=== PATIENT | male | born 1955 | race Caucasian/White ===

== ENCOUNTER → 2016-07-04 | Day surgery (SDC) | payer OTHER ==
[2016-05-02 15:19] VITALS: BMI 37.0
[~2016-07-04] MED LIST: LIDOCAINE HCL 2% 2 ML VIAL (20MG/ML) ONE; LISI-461 PO; MIDAZOLAM HCL 1 MG/ML 2ML VIAL ONE; ONDANSETRON INJ 2 MG/ML 2 ML VIAL ONE; PROPOFOL IV EMULSION 10 MG/ML 20 ML VIAL IV ONE; SODIUM CHLORIDE 0.9% 500ML 500 ML IV ONE
[2016-07-04 08:18] VITALS: TEMP 36.6
--- NOTE | 2016-07-04 08:35 | Endo History and Physical ---
History & Physical Date of Service: Jul 04, 2016. Chief Complaint: history of polyps Referring Physician: Dr. Arnaud Fletcher History of Present Illness 61 yo CM who presents for colonoscopy secondary to history of colon polyps. Past Medical History Arthritis, Hypertension Past Surgical History Hx Cardiac Surgery: No Hx Internal Defibrillator: No Hx Pacemaker: No Hx Abdominal Surgery: No Hx of Implantable Prosthesis: No Hx Post-Op Nausea and Vomiting: No Hx Cancer Surgery: No Hx Thoracic Surgery: No Hx Orthopedic: Yes (LT/ RT ROJELIO, LT KNEE SCOPE) Hx Urinary Tract Surgery: No Family History None Social History Smoking Status: Never Smoker Hx Substance Use: No Hx Alcohol Use: Yes (3-4 BEERS 3-4X/WEEK) Allergies Coded Allergies: No Known Allergies (Verified , 05/02/16) Current Medications Reported Home Medications Medications Dose Route/Sig Max Daily Dose Days Date Category Zestril (Lisinopril) 10 Mg Tab 10 Mg PO QAM 05/25/15 Reported Vital Signs Weight (Kilograms): 125 Height (Feet): 6 Height (Inches): 0 Date Time Temp Pulse Resp B/P Pulse Ox O2 Delivery O2 Flow Rate FiO2 07/04/16 08:18 36.6 69 16 159/87 96 Room Air Physical Exam General Appearance: WD/WN, no apparent distress Respiratory/Chest: Auscultation: breath sounds normal Cardiovascular: Heart Auscultation: RRR Abdomen: Bowel Sounds: normal Inspection & Palpation: soft, non-distended, no tenderness, guarding & rebound Assessment and Plan Assessment: 61 yo CM who presents for colonoscopy secondary to history of colon polyps. Plan: Proceed with colonoscopy.
--- NOTE | 2016-07-04 09:16 | Discharge Instructions ---
Endoscopy Patient Instructions Date / Procedure(s) Performed Jul 04, 2016. Colonoscopy Allergy Information Coded Allergies: No Known Allergies (Verified , 05/02/16) Discharge Date / Findings Jul 04, 2016. Colon polyps Internal hemorrhoids Medication Instructions OK to resume all medications today as prescribed. Reported Home Medications Medications Dose Route/Sig Max Daily Dose Days Date Category Zestril (Lisinopril) 10 Mg Tab 10 Mg PO QAM 05/25/15 Reported Provider Instructions Activity Restrictions - No exercising or heavy lifting for 24 hours. - Do not drink alcohol the day of the procedure. - Do not drive a car or operate machinery until the day after the procedure. - Do not make any important decisions or sign important papers in 24 hours after the procedure. Following Day: - Return to full activity which may include returning to work/school. Diet Start your diet with liquids and light foods (jello, soup, juice, toast). Then eat your usual diet if not nauseated. Treatment For Common After Affects For mild abdominal pain, bloating, or excessive gas: - Rest - Eat lightly - Lie on right side Follow-Up Information Follow-up with Dr. Arnaud Fletcher as scheduled Anesthesia Information What You Should Know You have had a procedure that required some medicine to reduce anxiety and discomfort. This treatment is called moderate sedation. After receiving the treatment, you may be sleepy, but you will be able to breathe on your own. The effects of the treatment may last for several hours. Follow these instructions along with Activity/Diet recommendations noted above: * Do NOT do anything where dizziness or clumsiness would be dangerous. * Rest quietly at home today, then you can be up and about tomorrow. * Have a responsible person stay with you the rest of today. * You may have had an I.V. today. If so, you may take the dressing off later today. Recommendations Call your doctor if: * Trouble breathing * Continuous vomiting for more than 24 hours * Temperature above 101 degrees * Severe abdominal pain or bloating * Pain not relieved by pain medicine ordered * There is increased drainage or redness from any incision * A large amount of rectal bleeding greater than 2-3 tablespoons. (If you had a polyp/s removed or have hemorrhoids, a small amount of blood - from the rectum is to be expected.) * You have any unanswered questions or concerns. IN THE EVENT OF A SERIOUS EMERGENCY, GO TO THE NEAREST EMERGENCY ROOM Your discharge instructions were prepared by provider Carlo Moreno. Patient Instructions Signature Page Jordon Wilhelmremyevelyne Patient (or Guardian) Signature/Date: I have read and understand the instructions given to me by my caregivers. Caregiver/RN/Doctor Signature/Date: The above-named patient and/or guardian has received patient instructions on this date. + Original Patient Signature Page (only) stays with chart. Please make copy for patient.
--- NOTE | 2016-07-04 09:22 | GI REPORT ---
Procedure Date: 07/04/2016 8:30 AM Procedure: Colonoscopy Indications: High risk colon cancer surveillance: Personal history of colonic polyps Medicines: Monitored Anesthesia Care Complications: No immediate complications. Estimated Blood Loss: Estimated blood loss: none. Procedure: Pre-Anesthesia Assessment: - Prior to the procedure, a History and Physical was performed, and patient medications and allergies were reviewed. The patient's tolerance of previous anesthesia was also reviewed. The risks and benefits of the procedure and the sedation options and risks were discussed with the patient. All questions were answered, and informed consent was obtained. Prior Anticoagulants: The patient has taken no previous anticoagulant or antiplatelet agents. ASA Grade Assessment: II - A patient with mild systemic disease. After reviewing the risks and benefits, the patient was deemed in satisfactory condition to undergo the procedure. After I obtained informed consent, the scope was passed under direct vision. Throughout the procedure, the patient's blood pressure, pulse, and oxygen saturations were monitored continuously. The On-site loaner was introduced through the anus and advanced to the cecum, identified by appendiceal orifice and ileocecal valve. The colonoscopy was performed without difficulty. The patient tolerated the procedure well. The quality of the bowel preparation was good. The ileocecal valve, appendiceal orifice, and rectum were photographed. Findings: Seven sessile polyps were found in the sigmoid colon, in the ascending colon and in the cecum. The polyps were 5 to 6 mm in size. These polyps were removed with a hot snare. Resection and retrieval were complete. Two pedunculated and sessile polyps were found in the rectum. The polyps were 6 to 10 mm in size. These polyps were removed with a hot snare. Resection and retrieval were complete. To prevent bleeding after the polypectomy, two hemostatic clips were successfully placed (MR conditional). There was no bleeding at the end of the procedure. Non-bleeding internal hemorrhoids were found during retroflexion. The hemorrhoids were small. Impression: - Seven 5 to 6 mm polyps in the sigmoid colon, in the ascending colon and in the cecum, removed with a hot snare. Resected and retrieved. - Two 6 to 10 mm polyps in the rectum, removed with a hot snare. Resected and retrieved. Clips (MR conditional) were placed. - Non-bleeding internal hemorrhoids. Recommendation: - Resume previous diet. - Continue present medications. - Repeat colonoscopy for surveillance based on pathology results. - Return to primary care physician as previously scheduled. Carlo Moreno, DO 07/04/2016 9:21:32 AM This report has been signed electronically. Note Initiated On: 07/04/2016 8:30 AM I attest to the content of the Intraoperative Record and orders documented therein, exceptions below
--- NOTE | 2016-07-04 09:32 | Anesthesiology Progress Note ---
Anesthesia Post Op Note Date & Time Jul 04, 2016 at 09:32 Vital Signs Pain Intensity: 0 Vital Signs Past 12 Hours Date Time Temp Pulse Resp B/P Pulse Ox O2 Delivery O2 Flow Rate FiO2 07/04/16 09:27 71 16 110/58 94 Room Air 07/04/16 09:21 76 16 126/65 95 Room Air 07/04/16 08:18 36.6 69 16 159/87 96 Room Air Notes Mental Status: alert / awake / arousable, participated in evaluation Pt Amnestic to Procedure: Yes Nausea / Vomiting: adequately controlled Pain: adequately controlled Airway Patency, RR, SpO2: stable & adequate BP & HR: stable & adequate Hydration State: stable & adequate Anesthetic Complications: no major complications apparent
[2016-07-04 09:47] VITALS: BP 134/82; PULSE 74; O2SAT 96
== END | disposition home or self-care (01) ==
LOC: C.GI 08:00
PROVIDERS: ATTEND Internal Medicine
DX: Z12.11 Encounter for screening for malignant neoplasm of colon (principal); D12.8 Benign neoplasm of rectum; D12.5 Benign neoplasm of sigmoid colon; K64.8 Other hemorrhoids; I10 Essential (primary) hypertension; M19.90 Unspecified osteoarthritis, unspecified site; Z96.643 Presence of artificial hip joint, bilateral; Z86.010 Personal history of colon polyps

== ENCOUNTER 2023-07-17 08:03 | Observation (INO) ==
--- NOTE | 2023-06-15 11:29 | PAT Medication Instructions ---
Medication Instructions Date of Service June 15, 2023 Home Medications Medication Instructions Recorded rosuvastatin 5 mg tablet 5 mg PO Q OTHER DAY #45 tabs 10/11/22 lisinopril 20 mg tablet 20 mg PO QAM #90 tabs 05/31/23 rosuvastatin 5 mg tablet 5 mg PO Q OTHER DAY lisinopril 20 mg tablet 20 mg PO QAM Continue as directed rosuvastatin 5 mg tablet 5 mg PO Q OTHER DAY DO NOT take the morning of surgery lisinopril 20 mg tablet 20 mg PO QAM OTHERWISE NOTHING TO EAT OR DRINK AFTER MIDNIGHT Other Notes If you have any questions please call us at [phone] or [phone] or [phone] or [phone]
--- NOTE | 2023-06-21 09:58 | Anesthesiology Consultation ---
Date of Service June 21, 2023 Assessment & Plan (1) Encounter for pre-operative examination: - Infectious disease screening: Per assessment on 06/21/23: No known infectious disease contacts or current infectious disease symptoms. No noted recent Covid positive test result. - S/P Left shoulder arthroscopy (09/16/21): LMA#5 inserted, inadequate seal + VT > DVL x1, Grade view 1, Glidescope#4, ETT 7.5 + regional at [facility] [place] - Outpatient joint assessment: Pt currently scheduled for inpatient pathway. If surgeon requests review for outpatient joint pathway, patient is not recommended candidate for outpatient joint program from anesthesia standpoint based on available information. Chart Review Chart Review: Acceptable Risk for Surgery and Patient seen in Pre Admission Testing Teaching & Discussion Pre-Anesthesia Teaching/Discussion Notes: Instructed NPO after midnight before surgery,except medications with 15 cc of water. Medication instructions provided according to the PAT guidelines. History Surgery Operation Date: 07/17/23 09:25 Proposed Procedures p Left Total Knee Arthroplasty - David Yoder, Height/Weight Height: 5 ft 11 in Weight: 137.2 kg Allergies Allergy/AdvReac Type Severity Reaction Status Date / Time No Known Allergies Allergy Unknown Verified 06/15/23 08:43 Medications Home Medications Medication Instructions Recorded Confirmed Last Taken rosuvastatin 5 mg tablet 5 mg PO Q OTHER DAY #45 tabs 10/11/22 06/15/23 Unknown lisinopril 20 mg tablet 20 mg PO QAM #90 tabs 05/31/23 06/15/23 Unknown Past Medical History Medical History History of COVID-19 04/2020 - mild flu symptoms. no current issues History of skin cancer History of tachycardia Remote hx early , no issues since cardiac ablation History of vertigo Hyperlipidemia Hypertension Morbid obesity with BMI of 40.0-44.9, adult Osteoarthritis Exercise / Class Metabolic Activity III < 4 Walking/Shop/Light housework (one FS (no CP, + SOB)) Past Family History Family History Mother Family history of diabetes mellitus Other No family history of adverse response to anesthesia Past Surgical History Surgical History H/O umbilical hernia repair History of arthroscopy left knee arthroscopy History of cardiac radiofrequency ablation [facility] [place] for tachycardia (2002) History of colonoscopy History of Mohs micrographic surgery for skin cancer right sabianism area History of nasal septoplasty History of repair of left rotator cuff Left shoulder arthroscopy (09/16/21): LMA#5 inserted, inadequate seal + VT > DVL x1, Grade view 1, Glidescope#4, ETT 7.5 + regional at [facility] [place] History of surgery on lower extremity benign lump removed from left calf History of total hip arthroplasty right/left Past Anesthesia History Difficult Airway (Left shoulder arthroscopy (09/16/21): LMA#5 inserted, inadequate seal + VT > DVL x1, Grade view 1, Glidescope#4, ETT 7.5 + regional at [facility] [place]) and No Family Hx of Anesthesia Complications History of PONV No Hx of PONV and Hx of Motion Sickness Social History Smoking Status: Former smoker Do You Dip or Chew Tobacco: Yes (Very rare- advised none DOS) Smoking End Date: Quit 20+ years ago Hx Alcohol Use: Yes Alcohol type: beer alcohol intake frequency: a few times a week Hx Substance Use: No substance use type: does not use Review of Systems Patient denies chest pain, shortness of breath, fever, chills, cough, wheezing, palpitations. Physical Exam Vital Signs VITALS BP 123/79 P 90 TEMP 98.3 SP02 94%RA RESP 20 PHYSICAL Full cervical extension range of motion. Full TMJ range of motion. TMD 3 finger breaths Mallampati Score 3 Dentition: upper partial Lungs: clear throughout to auscultation Cardiac: regular rate and rhythm, no murmurs noted Spine: normal Carotid arteries: negative bruit Extremities: no LE edema Lab Results Anesthesia Preop Results Results Anesthesia Widget: WBC 8.15 K/ul (4.8-10.8) 06/21/23 Hgb 15.1 g/dl (14.0-18.0) 06/21/23 Hct 42.7 % (42.0-52.0) 06/21/23 Plt 225 K/uL (130-400) 06/21/23 Na 138 mmol/L (136-145) 06/21/23 K 4.2 mmol/L (3.5-5.1) 06/21/23 Cl 106 mmol/L (98-107) 06/21/23 CO2 26 mmol/L (21-32) 06/21/23 BUN 15 mg/dl (6-23) 06/21/23 Creat 0.88 mg/dl (0.6-1.4) 06/21/23 Glucose Level 98 mg/dl (70-99(Fasting)) 06/21/23 PT 10.3 Seconds (9.0-12.0) 06/21/23 PTT 25 Seconds (21-31) 06/21/23 INR 0.9 (0.9-1.1) 06/21/23 Blood Type A Positive 06/21/23 Antibody Screen NEGATIVE 06/21/23 Testing Electrocardiogram Date: 06/21/23 NSR at 81bpm. "Normal ECG" Chest X-Ray Date: 06/21/23 FINDINGS: PA and lateral chest radiographs are compared to study dated 05/21/2018. The heart is top normal in size noting atherosclerotic calcification of the thoracic aorta. The pulmonary vasculature is noncongested. Chronic interstitial thickening is similar to previous. There is mild bibasilar scarring/atelectasis. The lungs and pleural spaces are otherwise clear. There is no pneumothorax. The skeletal structures are osteopenic. The bony thorax appears intact. IMPRESSION: No active disease in the chest.
[~2023-07-17 08:03] MED LIST changes: +BUPIVACAINE 0.5 % 5 MG/1 ML PF 10ML VIAL ONE; -LIDOCAINE HCL 2% 2 ML VIAL (20MG/ML) ONE; -LISI-461 PO; -MIDAZOLAM HCL 1 MG/ML 2ML VIAL ONE; -ONDANSETRON INJ 2 MG/ML 2 ML VIAL ONE; -PROPOFOL IV EMULSION 10 MG/ML 20 ML VIAL IV ONE; +ROPIVACAINE 0.5% 5 MG/ML 30 ML VIAL ONE; -SODIUM CHLORIDE 0.9% 500ML 500 ML IV ONE
[2023-07-17] MEDS ORDERED: fentaNYL citrate PF 100 MCG/2 ML VIAL ONE (08:45)
[2023-07-17] MEDS ORDERED: MIDAZOLAM HCL 1 MG/ML 2ML VIAL ONE (08:45)
[2023-07-17] MEDS: ACETAMINOPHEN 500 MG TAB PO SCH ×2 (08:49→14:06)
[2023-07-17] MEDS: FAMOTIDINE 20 MG TAB PO SCH (08:50)
[2023-07-17] MEDS: LR 60ML/HR IV SCH (08:50)
[2023-07-17] MEDS: GABAPENTIN 300 MG CAP PO SCH (08:50)
[2023-07-17] MEDS: LR 500ML BOLUS, THEN 15ML/HR IV SCH (08:50)
[2023-07-17] MEDS: dexAMETHasone**PF** 10 MG/ML VIAL IV SCH (08:51)
[2023-07-17] MEDS ORDERED: PROPOFOL IV EMULSION 10 MG/ML 20 ML VIAL IV ONE (09:12)
--- NOTE | 2023-07-17 09:14 | History & Physical Bridge Note ---
Date of Service July 17, 2023 History & Physical Bridge Note I have examined the patient, reviewed the History & Physical and in the interval since the performance of the History & Physical I have noted the following changes of clinical significance: no changes noted
[2023-07-17] MEDS ORDERED: fentaNYL citrate PF 100 MCG/2 ML VIAL IV PRN (09:53)
[2023-07-17] MEDS ORDERED: ATROPINE SULFATE 0.1 MG/ML 10ML SYR IV PRN (09:53)
[2023-07-17] MEDS ORDERED: ePHEDrine sulfate 50 MG/ML AMP IV PRN (09:53)
[2023-07-17] MEDS ORDERED: ONDANSETRON INJ 2 MG/ML 2 ML VIAL IV PRN ×2 (09:53→13:28)
[2023-07-17] MEDS: TRANEXAMIC ACID 1,000 MG **IV Pre-op IV SCH (09:56)
[2023-07-17] MEDS ORDERED: ePHEDrine sulfate 50 MG/5 ML SYR ONE (10:36)
[2023-07-17] MEDS: ROPIV 0.5% 246mg, Ketorolac 30mg, EPINEPHrine 0.5mg in NSS INFIL SCH (10:50)
[2023-07-17] MEDS: ORTHO JOINT ANESTHETIC ONE (10:50)
[2023-07-17] MEDS ORDERED: PHENYLEPHRINE 100MCG/ML 10ML SYR IV ONE (10:51)
[2023-07-17] MEDS: TRANEXAMIC ACID 1,000 MG **IV Intra-op IV SCH (11:08)
--- NOTE | 2023-07-17 11:22 | Operative Report ---
PG Post Operative Report Pre & Post Diagnosis Operation Date: 07/17/23 10:05 Pre-Op Diagnosis: Left Knee Osteoarthritis Post-Op Diagnosis: Left Knee Osteoarthritis I identified the patient and participated in the time-out.: Yes Procedure Operation Date: 07/17/23 10:05 Actual Procedures p Left Total Knee Arthroplasty(Left) - David Yoder DO Surgeon David Yoder DO Drop Forger Helper David Brownlee, PSA Estimated Blood Loss 30 Findings Consistent with Post-Op Diagnosis Specimens Left femoral and tibial bone Description of Procedure Implants used: I used a Hannah Persona total knee arthroplasty system with a size 11 standard femur, G tibia, 34 oval patella, and a size 10 medial congruent polyethylene bearing. All components were cemented in place with Biomet cement. Jordon isaac [facility] for the above procedure. He was seen in the preoperative holding area and the operative extremity was identified and signed. He was given a preoperative antibiotic, TXA, a spinal anesthetic and an adductor nerve block. He was taken back to the operating room and laid on the table in supine position. He was given basic sedation. The operative knee was then prepped and draped in sterile fashion. A timeout was done, and the patient and the operative extremity was properly identified. A midline incision was made directly over the patella. Dissection was taken down to the extensor mechanism. A medial parapatellar arthrotomy was used. The medial retinaculum was released and the fat pad was mostly excised. The knee was flexed and the ACL, PCL, and meniscus were removed. A drill was sent down the center of the femoral canal followed by an intramedullary casey. Off that casey a distal femoral cutting block was placed. 9 mm was resected off the distal femur at 5 of valgus. A posterior referencing AP sizing guide was then placed on the distal femur. The femur measured to be a size 11. 2 drill holes were placed in 3 of external rotation. A 4-in-1 cutting block was then impacted into place. Anterior, posterior, and chamfer cuts were then made. The proximal tibia was then exposed. An external tibial alignment guide was placed. A tibial cut guide was then anchored in place and the proximal tibia was then resected. The posterior aspect of the knee was then opened up and any additional meniscus fragments and osteophytes were removed. The tibia measured to be a size G. The tibial plate was then placed in the appropriate rotation and the tibia was drilled and punched. Trial components were then placed. I used a size 10 medial congruent polyethylene insert. The knee was brought through a full range of motion and felt to be stable. The peg holes for the femoral component were then drilled. The patella was then everted and 9 mm was resected off the posterior aspect of the patella. The patella measured to be a size 34 oval. 3 peg holes were then drilled. A trial patella was placed. The knee was once again brought through a full range of motion and felt to be stable. Trial components were then removed. The surrounding soft tissues were injected with 100 cc of an orthopedic pain control cocktail. All components were then cemented into place with Biomet cement. The final polyethylene insert was then snapped into place. Once cement was dry the tourniquet was deflated. Hemostasis was obtained. A dilute betadyne lavage was then done for 3 minutes. The joint was then irrigated with normal saline solution. The medial parapatellar arthrotomy was then closed with #1 Vicryl suture. The skin was closed with 2-0 Vicryl, 3-0V lock suture, and ana. A soft compressive dressing was placed. He was then transferred to a hospital bed and taken to the postanesthesia care unit in stable condition. He tolerated the procedure well. David Brownlee PA-C, was present for the entire procedure. He was critical for patient positioning, prepping, draping, retraction exposure, wound closure and application of sterile dressing. I attest to the content of the Intraoperative Record and any orders documented therein. Any exceptions are noted below.
--- NOTE | 2023-07-17 12:59 | Anesthesiology Progress Note ---
Date of Service July 17, 2023 Anesthesia Post Procedure Vital Signs Vital Signs: Temp Pulse Pulse Resp BP Pulse Ox O2 Del Method 07/17/23 12:35 67 20 118/71 93 Room Air 07/17/23 12:20 74 18 141/68 H 95 Room Air 07/17/23 12:10 97.5 F L 68 16 118/69 94 Room Air 07/17/23 12:00 64 16 128/67 95 Room Air 07/17/23 11:50 74 16 127/70 94 Oxymask 07/17/23 11:43 98.1 F 74 18 117/62 95 Oxymask 07/17/23 08:30 97.9 F 73 20 154/92 H 96 Room Air O2 Flow Rate 07/17/23 12:35 07/17/23 12:20 07/17/23 12:10 07/17/23 12:00 07/17/23 11:50 4 07/17/23 11:43 4 07/17/23 08:30 Transfer of Care Handoff Completed per policy Notes Mental Status: alert / awake / arousable and participated in evaluation Patient Amnestic to Procedure: Yes Nausea / Vomiting: adequately controlled Pain: adequately controlled Airway Patency, RR, SpO2: stable & adequate BP & HR: stable & adequate Hydration State: stable & adequate Neuraxial Anesthesia: was administered and sensory block is resolving Anesthetic Complications: no major complications apparent and Pt Satisfied with anesthetic care
--- NOTE | 2023-07-17 13:22 | XRay Report ---
XR knee RT 1 or 2V routine CLINICAL HISTORY: Postoperative evaluation. COMPARISON: Left knee radiographs March 30, 2023. FINDINGS: Alignment of the total left knee arthroplasty is anatomic. There is no periprosthetic frac ture or unexpected radiopaque foreign body. There are skin ana. IMPRESSION: Expected findings following total left knee arthroplasty. ACT 112: Negative or not required by law. Electronically signed by: Andrews Park M.D. 07/17/2023 1:21 PM
[2023-07-17] MEDS ORDERED: bisacodyL 10 MG SUPP PR PRN (13:28)
[2023-07-17] MEDS ORDERED: NALOXONE HCL 0.4 MG/1 ML VIAL/CARP IV PRN (13:28)
[2023-07-17] MEDS ORDERED: MAGNESIUM HYDROXIDE SUSP 30 ML UDC PO PRN (13:28)
[2023-07-17] MEDS ORDERED: METOCLOPRAMIDE HCL INJ 5 MG/ML 2 ML VIAL IV PRN (13:28)
[2023-07-17] MEDS ORDERED: HYDROmorphone INJ 0.5 MG/0.5 ML SYR IV PRN (13:28)
[2023-07-17] MEDS: SODIUM CHLORIDE 0.9% 1,000 ML IV SCH (13:41)
[2023-07-17] MEDS: KETOROLAC TROMETHAMINE 15 MG/ML VIAL IV SCH (14:05)
[2023-07-17] MEDS: ROSUVASTATIN CALCIUM 5 MG TAB PO SCH (14:06)
[2023-07-17] MEDS: ceFAZolin 2000MG 2,000 MG/15 ML SYR IV SCH (17:10)
[2023-07-17] MEDS: DOCUSATE SODIUM 100 MG CAP PO SCH (21:12)
[2023-07-17] MEDS: SENNA 8.6 MG TAB PO SCH (21:13)
[2023-07-17] MEDS: ASPIRIN 81 MG ECTAB PO SCH (21:13)
--- NOTE | 2023-07-18 06:52 | Orthopedic Progress Note ---
Date of Service July 18, 2023 Assessment & Plan (1) Status post left knee replacement: Overall he is doing very well. He is not having much pain in the left knee. He will be seen by physical therapy today for ambulation and range of motion exercises. Nursing staff can change his dressing after physical therapy. He is on aspirin for DVT prophylaxis. He can be discharged home later today. He will follow-up orthopedics in 2 weeks. Benjie Ruvalcaba was seen and examined at bedside this morning. Overall he is doing very well. He is not having much pain in the left knee. He has been up and ambulating to the bathroom. Has no complaints.. Review of Systems All systems reviewed & are unremarkable except as noted in HPI & below. Physical Exam On physical examination left knee, the dressing is clean and dry. His leg is out in full extension. He has active dorsiflexion plantarflexion of his left ankle.. Results & Data Results & Data Laboratory Results . Diagnostic Findings Postoperative x-rays of the left knee show the prosthesis to be in anatomic alignment without any evidence of fracture complication, or loosening.. PG Care Time/CCT Total # of Minutes Spent Total Time Spent with Patient: Total time spent is greater than 50% in coordination of care (as documented) at patient's floor/unit and/or counseling patient: Coding Level of Care Code 67218 Post Operative Follow-Up Diagnoses Status post left knee replacement Z96.652
--- NOTE | 2023-07-18 06:53 | Discharge Summary ---
Date of Service July 18, 2023 Principal Diagnosis Same as "Discharge Diagnosis" noted below under Discharge Instructions. Discharge Exam On physical examination left knee, the dressing is clean and dry. His leg is out in full extension. He has active dorsiflexion plantarflexion of his left ankle.. Discharge Data Procedures Performed Operation Date: 07/17/23 10:05 Actual Procedures p Left Total Knee Arthroplasty(Left) - David Yoder DO Ordered Studies 07/17/23 05:00 US - OR guided needle placemen Routine Hospital Course (1) Status post left knee replacement: On July 17, 2023 Jordon arrived at [facility] and underwent a left knee replacement without complication. He had a spinal anesthetic. Postoperatively he was started on aspirin for DVT prophylaxis and transferred to the general orthopedic floors. His hospital course was uneventful. On postop day #1, his vital signs were stable and his pain was well-controlled. He was able to participate well with physical therapy doing ambulation and range of motion exercises. He was then discharged home. He will follow-up orthopedics in 2 weeks. PG Care Time/CCT Total # of Minutes Spent Total Time Spent with Patient: Total time spent is greater than 50% in coordination of care (as documented) at patient's floor/unit and/or counseling patient: Discharge Plan Discharge Items Patient Disposition: Home - Self-Care Reason For Visit: DJD Knee left Discharge Diagnosis: Left knee replacement Activity: Per Instructions section Non-emergency contact: Surgeon Call non-emergency contact if: your wound has increased redness and your wound has increased drainage Follow-up/Referrals: Singh Kelly MD [Primary Care Provider] - Diet: Regular Addtl Attending Provider Instructions: Activity and Therapy Recommendations: * If you are using [facility] then therapy will be provided at your home until they feel you have accomplished all of your goals. * If you are using [facility] then Physical Therapy will be provided until they feel you are ready to start Outpatient Physical Therapy. * If you are not using home therapy then Outpatient Physical Therapy should start about 3-5 days from your day of surgery. Therapy will last about 6-10 weeks * It is important not to put a pillow under your knee when you are relaxing or sleeping. It is just as important to make sure you are getting your knee perfectly straight as it is to regain your knee bend. * You were shown a series of exercises in the hospital. Do these exercises three times each day including the exercises you were shown in physical therapy. * Get up and walk several times each day. For the first four weeks, try not to stand or walk for more than one hour at a time. If you do stand or walk for more than one hour, you will not hurt anything, but your leg will likely swell. * As you feel comfortable, you may change from the walker or crutches to a cane and then to independent walking. Medications: * Narcotic You will likely be sent home from the hospital with a prescription for the narcotic pain medication that worked best throughout your stay. * Cefadroxil -take the antibiotic twice a day for 10 days to help prevent infection. * Aspirin Most patients will be required to take Aspirin 81mg twice a day for 6 weeks after surgery. This is obtained [id number] and a prescription is not necessary. * Other medications may be prescribed for specific circumstances. If you have any questions, please call the office at . * Resume previous home medications unless otherwise instructed TEDs/Elastic Stockings: The white elastic stockings help limit swelling and prevent blood clots from forming in your legs.~ The more you wear them, the more they work. Wear them for six weeks. Dressing Care: The dressing can be changed after physical therapy on postop day #1. Daily dry dressing changes for a few days, especially if the incision is still draining some. If the incision is not draining then you may leave the ana open to air. If there is a little bit of drainage or if the ana are getting stuck on your clothing then cover the incision with a dry dressing. The ana will be removed at your 2 week follow-up appointment. Showering: You may shower 5 days from the day of surgery as long as the incision is no longer draining. You may shower with the ana exposed. Let soapy water run over the naa and pat them dry. Do not scrub or soak the incision. Things To Watch For: * Drainage from the incision site that occurs more than one week after your surgery. * Increased redness at the incision site. * Fever above 102 degrees Fahrenheit. * Unusual chest pain or shortness of breath. * Call [facility] at with any of the above problems Follow-Up Visit: Follow-up with Dr. Yoder's PA (David Brownlee) 2-3 weeks after your day of surge ry. He will remove your ana and answer any questions. If you have any additional questions or concerns, Dr Yoder is usually in the office at the same time and will be available An appointment was probably scheduled when you signed-up for surgery in the office. If you have any questions call Office Instructions: More detailed instructions as well as Frequently Asked Questions were provided in a folder by our office when you signed-up for surgery. Please review these instructions when you get home. If you have any further questions or concerns, please feel free to call the office at [phone] Pending Studies at Discharge: No Stand-Alone Forms: My [facility] [employer], Smoking Cessation Medications and DC Order Prescriptions: New oxycodone 5 mg Tablet 5 mg PO Q4H PRN (Reason: pain) Qty: 30 0RF cefadroxil 500 mg capsule 500 mg PO BID 10 Days Qty: 20 0RF aspirin 81 mg Tablet,Delayed Release (Dr/Ec) 81 mg PO BID 42 Days Qty: 0 0RF Continued rosuvastatin 5 mg tablet 5 mg PO Q OTHER DAY Qty: 45 3RF Patient Comments: takes in the am Rx Instructions: 5 mg PO every other day; lisinopril 20 mg tablet 20 mg PO QAM Qty: 90 3RF Discharge Orders: Discharge Order (Routine); Ordered 07/18/23 Ordered By: David Yoder Admission Data Admit Date/Time: 07/17/23 11:44 Attending Provider: David Yoder Admit Provider: David Yoder Primary Care Provider: Singh Kelly
[2023-07-18] MEDS: oxyCODONE HCL IR 5 MG TAB (IMMEDIATE RELEASE) PO PRN (07:15)
[2023-07-18] MEDS: dexAMETHasone 4 MG TAB PO SCH (07:15)
[2023-07-18] MEDS: MULTIVITAMIN TAB PO SCH (07:15)
[2023-07-18] MEDS: lisinopril 20 MG TAB PO SCH (07:16)
== END 2023-07-18 11:02 | disposition home or self-care (01) ==
LOC: ASU 08:03 → 3E 08:03 → PACUINP 08:03 → 3E 13:16

== ENCOUNTER 2024-04-05 10:04 | Inpatient (IN) ==
--- NOTE | 2024-04-05 10:22 | Emergency Department Note ---
Impression & Plan Brain TIA, Stroke-like symptoms ED Provider Note HISTORY OF PRESENT ILLNESS: Patient is a 68-year-old male presenting with shakiness and reported slurred speech. Patient reports that he woke up this morning and at about 9 AM he started having shakiness in his right upper extremity and noticed that his left upper extremity was weak. He states he is having difficulties getting his coffee cup to his face with his left upper extremity. He called 911. He reportedly had left-sided facial droop on BLS arrival so they called ALS. On ALS arrival, they reported that he was having some slurred speech. On arrival to the emergency department, the patient reports his symptoms have nearly resolved. He states his speech is significantly improved and no longer slurred. He denies any chest pain or shortness of breath. Denies any DVT or PE history. He denies any history of cardiac stents. He is not on any anticoagulation or antiplatelet therapies. He denies any numbness or tingling in his extremities. Denies any recent head injuries or chiropractic manipulation of his neck. Denies any recent fevers. ROS: as above PHYSICAL EXAM: Constitutional: Patient appears in no acute distress. HENT: Head: Normocephalic and atraumatic. Eyes: EOMI, PERRL Mouth/Throat: Mucous membranes moist. Neck: Trachea midline. Neck supple. Cardiovascular: RRR, No murmurs, rubs or gallops. Intact distal pulses. Pulmonary/Chest: No respiratory distress. Breath sounds clear and equal bilaterally. No wheezes or rales. Abdominal: Abdomen soft, no tenderness, rebound or guarding. Musculoskeletal: No edema, tenderness or deformity noted. Skin: Warm and dry. No rash, erythema, pallor or cyanosis Psychiatric: Appropriate mood and affect for situation. Neurological: Alert and keenly responsive. Facies symmetric. Able to raise eyebrows, close eyes, smile, puff mouth, stick out tongue, move tongue left and right and raise palate symmetrically. Able to shrug shoulders. PERRLA. SILT to forehead below eye and at jawline. Can hear soft noise bilaterally. Good finger to nose. Strength 5/5 in bilateral upper and lower extremities. SILT throughout bilateral upper and lower extremities. MDM: - Vitals signs showed hypertension - History obtained via patient. History as above. - Chronic conditions affecting care: HTN; HLD; obesity - Differential diagnoses include, but are not limited to: CVA; intracranial hemorrhage; TIA; ACS; pneumonia; electrolyte abnormality; dysrhythmia - Order placed for continuous cardiac monitoring. At this time, monitor showed rate of 79 bpm with normal sinus rhythm, per my interpretation. - External medical records reviewed. Primary care visit note dated 12/28/2023 was reviewed. Patient follows in the clinic for his multiple medical problems. He had lipids, hemoglobin A1c, CBC and CMP ordered at that visit. - EKG interpreted by myself showed normal sinus rhythm. Rate 88 bpm. QT 342. No acute ischemic changes - Laboratory workup interpreted by myself showed normal WBC; normal PT/INR; stable electrolyte; normal troponin - CXR negative for pneumonia, per my interpretation - CT head wo contrast negative for acute pathology. Noted to have a 1.2 cm hypodense focus within the left thalamus representing a likely old infarct. - CTA head/neck negative - Patient's symptoms resolved on arrival to the ER. Given this, he was not stroke alerted. Symptoms sound concerning for potential transient ischemic attack. Will admit to hospital service for further workup. - Discussion was had with manager rn case about patient's case and need for admission - Hospitalist, Dr. Mancini, consulted for admission - [facility] for further evaluation and management. ASSESSMENT AND PLAN: Diagnosis: Strokelike symptoms; TIA Plan: Admit Past Med/Surg History Problem List (Updated 04/05/24 @ 13:07 by Ellen Barbosa PA-C) TIA (transient ischemic attack) Status post left knee replacement (~06/2023) Encounter for pre-operative examination Osteoarthritis of left knee History of colon polyps S/P left rotator cuff repair Shoulder arthritis Rotator cuff tear Obesity Hyperlipidemia DJD (degenerative joint disease) of hip S/P hip replacement (Chronic) History of cardiac radiofrequency ablation [facility] [place] [facility] for tachycardia (2002) Hypertension Medical History History of vertigo Morbid obesity with BMI of 40.0-44.9, adult Osteoarthritis History of skin cancer History of tachycardia Remote hx early , no issues since cardiac ablation Hyperlipidemia History of COVID-19 04/2020 - mild flu symptoms. no current issues Surgical History History of repair of left rotator cuff Left shoulder arthroscopy (09/16/21): LMA#5 inserted, inadequate seal + VT > DVL x1, Grade view 1, Glidescope#4, ETT 7.5 [place] [facility] [place] of surgery on lower extremity benign lump removed from left calf History of colonoscopy History of Mohs micrographic surgery for skin cancer right zoroastrian area H/O umbilical hernia repair History of total hip arthroplasty right/left History of arthroscopy left knee arthroscopy History of nasal septoplasty Family History Mother Family history of diabetes mellitus Other No family history of adverse response to anesthesia Social History Smoking Status: Never smoker Second Hand Exposure: Yes (ON OCC); Do You Dip or Chew Tobacco: Yes (Very rare- advised none DOS); Hx Alcohol Use: Yes Alcohol type: beer Hx Substance Use: No Preferred Language: Amharic Communication Ability: Effective Visual Impairment: No Limitations 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 Required: No Beliefs That Will Affect Care: None Current Living Situation: Alone current occupational status: retired Feels Safe at Home: Yes Childhood Exposure to Second-Hand Smoke: No Diet: regular caffeine: Yes Dental Care, Regularly: No Physical Activity Frequency: 1-2 Times per Week Physical Activity Frequency Comment: Knee exercises, light weight lifting Seatbelt Use: always Assistive Devices: Glasses and Walker Allergies Allergies Allergy/AdvReac Type Severity Reaction Status Date / Time No Known Allergies Allergy Unknown Verified 04/05/24 12:13 Home Meds Previous Rx's Medication Instructions Recorded lisinopril 20 mg tablet 20 mg PO QAM #90 tabs 03/20/24 rosuvastatin 5 mg tablet 5 mg PO Q OTHER DAY #45 tabs 03/20/24 Results & Data (ED) Vital Signs Vital Signs - 24 hr 04/05/24 10:13 04/05/24 10:13 04/05/24 10:23 Temperature 36.8 C 36.8 C Temperature Source Oral Oral Pulse Rate 90 86 Pulse Rate [Apical] 90 Pulse Rate from SpO2 Sensor Pulse Rhythm Respiratory Rate 18 18 Respiratory Effort / Characteristics Non-Labored Spontaneous Non-Labored Spontaneous Respiratory Depth Normal Normal Respiratory Pattern Regular Blood Pressure 167/112 H Blood Pressure [Right Arm] 167/112 H Blood Pressure Mean 130 Blood Pressure Mean [Right Arm] 130 Blood Pressure Position Semi-fowlers Blood Pressure Position [Right Arm] Semi-fowlers Pulse Oximetry 95 95 Oxygen Delivery Method Room Air Room Air Sepsis Recent Fever Within 48 Hours No Sepsis New/Unexplained Change in Mental Status N/A Sepsis Action Taken by Nursing No Action Required 04/05/24 10:30 04/05/24 10:30 04/05/24 10:30 Temperature Temperature Source Pulse Rate 85 85 Pulse Rate [Apical] Pulse Rate from SpO2 Sensor 85 Pulse Rhythm Regular Respiratory Rate 17 24 Respiratory Effort / Characteristics Respiratory Depth Respiratory Pattern Blood Pressure Blood Pressure [Right Arm] Blood Pressure Mean Blood Pressure Mean [Right Arm] Blood Pressure Position Blood Pressure Position [Right Arm] Pulse Oximetry 95 95 96 Oxygen Delivery Method Room Air Room Air Sepsis Recent Fever Within 48 Hours Sepsis New/Unexplained Change in Mental Status Sepsis Action Taken by Nursing 04/05/24 11:12 04/05/24 11:36 04/05/24 12:27 Temperature Temperature Source Pulse Rate 88 86 79 Pulse Rate [Apical] Pulse Rate from SpO2 Sensor 87 85 80 Pulse Rhythm Respiratory Rate 15 19 24 Respiratory Effort / Characteristics Respiratory Depth Respiratory Pattern Blood Pressure Blood Pressure [Right Arm] Blood Pressure Mean Blood Pressure Mean [Right Arm] Blood Pressure Position Blood Pressure Position [Right Arm] Pulse Oximetry 96 95 95 Oxygen Delivery Method Sepsis Recent Fever Within 48 Hours Sepsis New/Unexplained Change in Mental Status Sepsis Action Taken by Nursing 04/05/24 12:30 Temperature Temperature Source Pulse Rate 79 Pulse Rate [Apical] Pulse Rate from SpO2 Sensor 78 Pulse Rhythm Respiratory Rate 19 Respiratory Effort / Characteristics Respiratory Depth Respiratory Pattern Blood Pressure Blood Pressure [Right Arm] Blood Pressure Mean Blood Pressure Mean [Right Arm] Blood Pressure Position Blood Pressure Position [Right Arm] Pulse Oximetry 97 Oxygen Delivery Method Sepsis Recent Fever Within 48 Hours Sepsis New/Unexplained Change in Mental Status Sepsis Action Taken by Nursing Laboratory Data 04/05/24 10:15 04/05/24 10:15 Lab Results 04/05/24 Range/Units 10:15 WBC 7.48 (4.8-10.8) K/ul RBC 4.66 L (4.70-6.10) M/uL Hgb 14.6 (14.0-18.0) g/dl Hct 42.8 (42.0-52.0) % MCV 91.8 (80.0-100.0) fL MCH 31.3 (25.0-34.0) pg MCHC 34.1 (32.0-36.0) g/dL RDW Std Deviation 41.6 (36.4-46.3) fL RDW Coeff of Saulo 12.4 (11.5-14.5) % Plt Count 206 (130-400) K/uL MPV 9.7 (9.4-12.4) fL PT 9.9 (9.0-12.0) Seconds INR 0.9 (0.9-1.1) APTT 23 (21-31) Seconds PTT Ratio 0.9 Sodium 140 (136-145) mmol/L Potassium 4.3 (3.5-5.1) mmol/L Chloride 106 (98-107) mmol/L Carbon Dioxide 28 (21-32) mmol/L Anion Gap 6 (3-11) BUN 12 (6-23) mg/dl Creatinine 0.92 (0.6-1.4) mg/dl Est Cr Clr Drug Dosing 107.1 ml/min eGFR 89.49 BUN/Creatinine Ratio 13.0 (10-20) Glucose 115 H (70-99(Fasting)) mg/dl Calcium 9.1 (8.6-10.3) mg/dl Magnesium 2.1 (1.7-2.4) mg/dl Total Bilirubin 0.4 (0.2-1.0) mg/dl AST 19 (13-39) U/L ALT 19 (7-52) U/L Alkaline Phosphatase 64 (34-104) U/L Troponin I High Sens 9.7 (0-20) pg/ml Total Protein 6.8 (6.0-8.3) gm/dl Albumin 4.0 (3.4-5.0) gm/dl Globulin 2.8 (2.5-4.0) gm/dl Albumin/Globulin Ratio 1.4 (0.9-2) Administered Medications Discontinued Medications Ioversol (Optiray 320 125ml) 120 ml IV ONCE ONE Stop: 04/05/24 11:06 Last Admin: 04/05/24 11:06 Dose: 120 ml Documented By: RENA Imaging Data Radiologist's Impression: Chest X-Ray 04/05/24 10:17 XR chest 1V portable CLINICAL HISTORY: weakness COMPARISON STUDY: Chest radiograph June 21, 2023. FINDINGS: Lung volumes are normal. Minimal left basilar opacity favors atelectasis. There is no pneumothorax or pleural effusion. Cardiomegaly is unchanged. Mediastinal contours are normal. There is no evidence for pulmonary edema. IMPRESSION: No acute cardiopulmonary findings. ACT 112: Negative or not required by law. Electronically signed by: Andrews Park M.D. 04/05/2024 10:[address] 04/05/24 10:17 CT OF THE HEAD WITHOUT CONTRAST CLINICAL HISTORY: slurred speech; L facial droop COMPARISON STUDY: No previous studies for comparison. TECHNIQUE: Helical axial images of the head were obtained without IV contrast. Automated exposure control was utilized for the study. A dose lowering technique was utilized adhering to the principles of ALARA. FINDINGS: No acute intracranial hemorrhage, midline shift or mass effect is present. The ventricular system is unremarkable. The basal cisterns are patent. No extra-axial collections are present. There are no findings to suggest acute dural sinus thrombosis or acute territorial infarct. There is a 1.2 cm hypodense focus within the left thalamus. IMPRESSION: 1. No acute intracranial hemorrhage or mass effect. 2. 1.2 cm hypodense focus within the left thalamus. Although age indeterminate, this favors an old infarct. ACT 112: Negative or not required by law. Electronically signed by: Andrews Park M.D. 04/05/2024 11:31 AM Head CTA 04/05/24 10:17 CT angio neck with con, CT angio head w con CLINICAL HISTORY: 68 years-old Male with slurred speech; L facial droop. Acute strokelike symptoms COMPARISON STUDY: Head CT of same day TECHNIQUE: Following the IV administration of 120 mL of Optiray, CT angiogram of the head and neck was performed. Images are reviewed in the axial, sagittal, and coronal planes. 3-D MIPS images are created and assessed. IV contrast was administered without complication. All measurements were calculated based on NASCET criteria. A dose lowering technique was utilized adhering to the principles of ALARA. CT DOSE: 1268.91 mGy.cm FINDINGS: Three-vessel morphology of the thoracic aortic arch. Patent common carotid arteries. There is mild atherosclerotic plaque within the carotid bulbs without significant stenosis. Dominant and widely patent left vertebral artery. Development of a degenerative right vertebral artery appears to terminate into the PICA. Patent middle and anterior cerebral arteries. Cerebral venous sinuses are patent. No abnormal intracranial enhancement. Likely chronic left thalamic lacunar infarct. No pneumothorax. Unremarkable soft tissues. Degenerative changes of the cervical spine. IMPRESSION:Unremarkable CTA of the head and neck. ACT 112: Negative or not required by law. The above report was generated using voice recognition software. It may contain grammatical, syntax or spelling errors. Electronically signed by: Won Ospina M.D. 04/05/2024 11:40 AM Neck CTA 04/05/24 10:17 CT angio neck with con, CT angio head w con CLINICAL HISTORY: 68 years-old Male with slurred speech; L facial droop. Acute strokelike symptoms COMPARISON STUDY: Head CT of same day TECHNIQUE: Following the IV administration of 120 mL of Optiray, CT angiogram of the head and neck was performed. Images are reviewed in the axial, sagittal, and coronal planes. 3-D MIPS images are created and assessed. IV contrast was administered without complication. All measurements were calculated based on NASCET criteria. A dose lowering technique was utilized adhering to the principles of ALARA. CT DOSE: 1268.91 mGy.cm FINDINGS: Three-vessel morphology of the thoracic aortic arch. Patent common carotid arteries. There is mild atherosclerotic plaque within the carotid bulbs without significant stenosis. Dominant and widely patent left vertebral artery. Development of a degenerative right vertebral artery appears to terminate into the PICA. Patent middle and anterior cerebral arteries. Cerebral venous sinuses are patent. No abnormal intracranial enhancement. Likely chronic left thalamic lacunar infarct. No pneumothorax. Unremarkable soft tissues. Degenerative changes of the cervical spine. IMPRESSION:Unremarkable CTA of the head and neck. ACT 112: Negative or not required by law. The above report was generated using voice recognition software. It may contain grammatical, syntax or spelling errors. Electronically signed by: Won Ospina M.D. 04/05/2024 11:40 AM Discharge Plan Visit Data Chief Complaint: TIA Symptoms Stated Complaint: STROKE SX ED Provider: Ifeoma Granados Discharge Problem: Brain TIA, Stroke-like symptoms Forms Stand Alone Forms: [employer] Prescriptions Prescriptions: No Action lisinopril 20 mg tablet 20 mg PO QAM Qty: 90 3RF rosuvastatin 5 mg tablet 5 mg PO Q OTHER DAY Qty: 45 3RF Patient Comments: takes in the am Rx Instructions: 5 mg PO every other day; Referrals Referrals: Singh Kelly MD [Primary Care Provider] -
[2024-04-05 10:45] LABS: Hematocrit (blood only) 42.8 % (42.0-52.0); Hemoglobin 14.6 g/dl (14.0-18.0); Mean Corpuscular Hemoglobin 31.3 pg (25.0-34.0); Mean Corpuscular Hgb Conc 34.1 g/dL (32.0-36.0); Mean Corpuscular Volume 91.8 fL (80.0-100.0); Mean Platelet Volume 9.7 fL (9.4-12.4); Platelet Count 206 K/uL (130-400); RDW Coefficient of Variation 12.4 % (11.5-14.5); RDW Standard Deviation 41.6 fL (36.4-46.3); Red Blood Count 4.66 M/uL (4.70-6.10); White Blood Count 7.48 K/ul (4.8-10.8)
--- NOTE | 2024-04-05 10:48 | XRay Report ---
XR chest 1V portable CLINICAL HISTORY: weakness COMPARISON STUDY: Chest radiograph June 21, 2023. FINDINGS: Lung volumes are normal. Minimal left basilar opacity favors atelectasis. There is no pneum othorax or pleural effusion. Cardiomegaly is unchanged. Mediastinal contours are normal. There is no evidence for pulmonary edema. IMPRESSION: No acute cardiopulmonary findings. ACT 112: Negative or not required by law. Electronically signed by: Andrews Park M.D. 04/05/2024 10:46 AM
[2024-04-05 10:57] LABS: Albumin Globulin Ratio 1.4 (0.9-2); Bilirubin,Total 0.4 mg/dl (0.2-1.0); Calcium 9.1 mg/dl (8.6-10.3); Creatinine Clr Calc Pharmacy 107.1 ml/min; Globulin 2.8 gm/dl (2.5-4.0); Magnesium 2.1 mg/dl (1.7-2.4); Potassium 4.3 mmol/L (3.5-5.1); Total Protein 6.8 gm/dl (6.0-8.3)
[2024-04-05 11:03] LABS: Troponin I High Sensitivity 9.7 pg/ml (0-20)
[2024-04-05] MEDS: OPTIRAY 320 125ml IV ONE (11:06)
[2024-04-05 11:08] LABS: INR 0.9 (0.9-1.1); Partial Thromboplastin Ratio 0.9; Partial Thromboplastin Time 23 Seconds (21-31); Prothrombin Time 9.9 Seconds (9.0-12.0)
--- NOTE | 2024-04-05 11:33 | CT Scan Report ---
CT OF THE HEAD WITHOUT CONTRAST CLINICAL HISTORY: slurred speech; L facial droop COMPARISON STUDY: No previous studies for comparison. TECHNIQUE: Helical axial images of the head were obtained without IV contrast. Automated exposure con trol was utilized for the study. A dose lowering technique was utilized adhering to the principles o f ALARA. FINDINGS: No acute intracranial hemorrhage, midline shift or mass effect is present. The ventricular system is unremarkable. The basal cisterns are patent. No extra-axial collections are present. There are no findings to suggest acute dural sinus thrombosis or acute territorial infarct. There is a 1.2 cm hypodense focus within the left thalamus. IMPRESSION: 1. No acute intracranial hemorrhage or mass effect. 2. 1.2 cm hypodense focus within the left thalamus. Although age indeterminate, this favors an old in farct. ACT 112: Negative or not required by law. Electronically signed by: Andrews Park M.D. 04/05/2024 11:31 AM
--- NOTE | 2024-04-05 11:42 | CT Scan Report ---
CT angio neck with con, CT angio head w con CLINICAL HISTORY: 68 years-old Male with slurred speech; L facial droop. Acute strokelike symptoms COMPARISON STUDY: Head CT of same day TECHNIQUE: Following the IV administration of 120 mL of Optiray, CT angiogram of the head and neck wa s performed. Images are reviewed in the axial, sagittal, and coronal planes. 3-D MIPS images are crea amalia and assessed. IV contrast was administered without complication. All measurements were calculated based on NASCET criteria. A dose lowering technique was utilized adhering to the principles of ANETA Mccain. CT DOSE: 1268.91 mGy.cm FINDINGS: Three-vessel morphology of the thoracic aortic arch. Patent common carotid arteries. There is mild at herosclerotic plaque within the carotid bulbs without significant stenosis. Dominant and widely paten t left vertebral artery. Development of a degenerative right vertebral artery appears to terminate in to the PICA. Patent middle and anterior cerebral arteries. Cerebral venous sinuses are patent. No abn ormal intracranial enhancement. Likely chronic left thalamic lacunar infarct. No pneumothorax. Unremarkable soft tissues. Degenerativ e changes of the cervical spine. IMPRESSION:Unremarkable CTA of the head and neck. ACT 112: Negative or not required by law. The above report was generated using voice recognition software. It may contain grammatical, syntax o r spelling errors. Electronically signed by: Won Ospina M.D. 04/05/2024 11:40 AM
--- NOTE | 2024-04-05 12:54 | Electrocardiogram Report ---
Test Reason : Blood Pressure : */* mmHG Vent. Rate : 88 BPM Atrial Rate : 88 BPM P-R Int : 154 ms QRS Dur : 86 ms QT Int : 342 ms P-R-T Axes : 59 -2 51 degrees QTcB Int : 413 ms Normal sinus rhythm Normal ECG When compared with ECG of 21-Jun-2023 10:20, No significant change was found Confirmed by Giancarlo Goldsmith ([id number]) on 04/05/2024 12:53:58 PM Referred By: Confirmed By: Giancarlo Goldsmith
--- NOTE | 2024-04-05 12:58 | History & Physical Report ---
Date of Service April 05, 2024 Assessment & Plan (1) TIA (transient ischemic attack): Plan: LUE weakness with dysarthria and reported facial droop starting around 0840 today arrival, resolving within 40 minutes. No return of symptoms - Admit med tele - Last known well: 0840 - Neurochecks + NIHSS - Dysphagia screen x 1 - CT head revealing old infarct which is suggested by 1.2 cm hypodense focus within left thalamus - CTA head/neck without acute findings - No prior echo; echo EF 60 to 65%, LV systolic function normal, RV normal size and function, RVSP elevated 30 to 40 mmHg, mild aortic root dilatation (aortic root diameter 4.0 cm) - A1c on 12/29/2023- 5.4% - Lipids 12/28- Total 151, HDL 65, LDL 67, TG 93 - Troponin 9.7 - EKG NSR with rate 88 - ABCD2 score- 4 (moderate risk) will start DAPT x 21 days then switch to single agent - ASA 324mg, Clopidogrel 300mg TODAY - Continue (04/05) ASA 81mg + Clopidogrel 75mg daily - On rosuvastatin 5 mg every other day, with LDL at goal - MRI brain without acute intracranial abnormalities, no acute or subacute infarct, involutional changes with mild chronic microvascular ischemic disease, chronic left thalamic lacunar infarct (2) Hypertension: Plan: Hypertensive on arrival - Lisinopril 20 mg every morning (3) Hyperlipidemia: Plan: At goal - Rosuvastatin 5mg every other day - Lipids 12/28-total 151, HDL 65, LDL 67, TG 93 Plan Dispo: Admit Diet: Regular VTE prophylaxis: Encourage ambulation; starting on DAPT so no additional management currently Code: Full Admission and Anticipated Discharge Date Admission Date: 04/05/2024 History of Present Illness Chief Complaint: LUE weakness Primary Care Provider: Singh Kelly MD 68-year-old male presenting via EMS for LUE weakness noted around 0840 the day of arrival with associated dysarthria and reported facial droop. Symptoms resolved on transport to ED. ED course: CBC- RBC 4.66; CMP-glucose 115 otherwise WNL; PT/INR WNL.; CXR without acute cardiopulmonary findings; head CT, head CTA, neck CTA all without acute findings, head CT suggestive of old infarct due to 1.2 cm hypodense focus within the left thalamus. EKG appearing NSR with rate around 90. Patient is a 68-year-old male with PMHx hypertension and hyperlipidemia as well as additional orthopedic related conditions presenting for sudden onset of LUE weakness. Last known well per patient was 0840 the day of arrival. States he woke up, was sitting in a chair and drinking coffee. States that he dropped his phone and went to reach it with his left arm, but that his left arm was flaccid. Patient had to use his right arm to lift his left arm. Called his son at [phone] and called ambulance. Upon arrival of EMS, patient was noted to have possible left-sided facial droop, and patient felt as though he was slurring his words. Believes symptoms lasted approximately 40 minutes. Denying continuation of symptoms. No additional numbness/tingling to any extremities, clear articulation. Denying chest pain, shortness of breath, palpitations, abdominal pain, N/V/D/C, headache, vision changes, numbness/tingling, weakness, or LUTS. Has never had this happen before. Took a.m. medications. Please see Dr. Mancini's attestation for adjustments/additions to treatment plan. Allergies Allergy/AdvReac Type Severity Reaction Status Date / Time No Known Allergies Allergy Unknown Verified 04/05/24 12:13 Home Medications Medication Instructions Recorded Confirmed Type lisinopril 20 mg tablet 20 mg PO QAM #90 tabs 03/20/24 04/05/24 Rx rosuvastatin 5 mg tablet 5 mg PO Q OTHER DAY #45 tabs 03/20/24 04/05/24 Rx aspirin 81 mg tablet,delayed 81 mg PO DAILY #30 tabs 04/06/24 Rx release clopidogrel 75 mg tablet 75 mg PO QAM 3 weeks #21 tabs 04/06/24 Rx Past Med/Surg History Problem List (Updated 04/05/24 @ 13:07 by Ellen Barbosa PA-C) TIA (transient ischemic attack) Status post left knee replacement (~06/2023) Encounter for pre-operative examination Osteoarthritis of left knee History of colon polyps S/P left rotator cuff repair Shoulder arthritis Rotator cuff tear Obesity Hyperlipidemia DJD (degenerative joint disease) of hip S/P hip replacement (Chronic) History of cardiac radiofrequency ablation [facility] [place] tachycardia ([place]) Hypertension Medical History History of vertigo Morbid obesity with BMI of 40.0-44.9, adult Osteoarthritis History of skin cancer History of tachycardia Remote hx early , no issues since cardiac ablation Hyperlipidemia History of COVID-19 04/2020 - mild flu symptoms. no current issues Surgical History History of repair of left rotator cuff Left shoulder arthroscopy (09/16/21): LMA#5 inserted, inadequate seal + VT > DVL x1, Grade view 1, Glidescope#4, ETT 7.5 [place] [facility] [place] of surgery on lower extremity benign lump removed from left calf History of colonoscopy History of Mohs micrographic surgery for skin cancer right tenriism area H/O umbilical hernia repair History of total hip arthroplasty right/left History of arthroscopy left knee arthroscopy History of nasal septoplasty Family History Mother Family history of diabetes mellitus Other No family history of adverse response to anesthesia Social History Smoking Status: Never smoker Second Hand Exposure: Yes (ON OCC); Do You Dip or Chew Tobacco: Yes (Very rare- advised none DOS); Hx Alcohol Use: Yes Alcohol type: beer Hx Substance Use: No Preferred Language: Setswana Communication Ability: Effective Visual Impairment: No Limitations Side Framer Required: No Beliefs That Will Affect Care: None Current Living Situation: Alone current occupational status: retired Other Information That Helps Us Care for You: No Feels Safe at Home: Yes Safety Concerns: Feels Safe At This Time Childhood Exposure to Second-Hand Smoke: No Diet: regular caffeine: Yes Dental Care, Regularly: No Physical Activity Frequency: 1-2 Times per Week Physical Activity Frequency Comment: Knee exercises, light weight lifting Seatbelt Use: always Assistive Devices: Glasses Assistive Devices Comment: partial upper denture Review of Systems Review of Systems: All systems reviewed & are unremarkable except as noted in Subjective Physical Exam Physical Exam: General: No acute distress Skin: Warm and dry Head: Normocephalic, atraumatic Eyes: PERRL, conjunctivae clear, sclera non-icteric; EOM intact ENT: External ear and ear canal without swelling; nose atraumatic; fine dentition, tongue normal appearance without deviation, pharynx normal without tonsillar swelling or exudate Neck: Supple, no LAD Cardio: RRR, no M/G/R, S1 and S2 normal Resp: No respiratory distress, Lungs CTA in all lobes bilaterally, no wheezes, rales, or rhonchi Abdomen: Soft, symmetric, nontender; no distention; No masses or hepatosplenomegaly MSK: No deformities, full ROM throughout; sensation normal to UE/LE; pulses palpable and equal; no edema. Neuro: Awake, alert; Muscle strength 5/5 bilaterally in UE/LE; Sensation intact bilaterally; CN intact-raises eyebrow, smiles, puffs out cheeks, sticks out tongue, shrug shoulders against resistance, PERRLA, normal sensation in all locations of face, strength 5 out of 5 in all extremities. Psych: Appropriate mood and affect; good judgement and insight. 2 family numbers present in room at time of visit. Results & Data Results & Data Vital Signs (Past 12 Hours) Vital Signs Temp Pulse Pulse Resp BP BP Pulse Ox 04/05/24 12:30 79 19 97 04/05/24 12:27 79 24 95 04/05/24 11:36 86 19 95 04/05/24 11:12 88 15 96 04/05/24 10:30 85 24 96 04/05/24 10:30 85 17 95 04/05/24 10:30 95 04/05/24 10:23 86 04/05/24 10:13 36.8 C 90 18 167/112 H 95 04/05/24 10:13 36.8 C 90 18 167/112 H 95 O2 Del Method 04/05/24 12:30 04/05/24 12:27 04/05/24 11:36 04/05/24 11:12 04/05/24 10:30 04/05/24 10:30 Room Air 04/05/24 10:30 Room Air 04/05/24 10:23 04/05/24 10:13 Room Air 04/05/24 10:13 Room Air Laboratory Results 04/05/24 10:15 WBC 7.48 RBC 4.66 L Hgb 14.6 Hct 42.8 MCV 91.8 MCH 31.3 MCHC 34.1 RDW Std Deviation 41.6 RDW Coeff of Saulo 12.4 Plt Count 206 MPV 9.7 PT 9.9 INR 0.9 APTT 23 PTT Ratio 0.9 Sodium 140 Potassium 4.3 Chloride 106 Carbon Dioxide 28 Anion Gap 6 BUN 12 Creatinine 0.92 Est Cr Clr Drug Dosing 107.1 eGFR 89.49 BUN/Creatinine Ratio 13.0 Glucose 115 H Calcium 9.1 Magnesium 2.1 Total Bilirubin 0.4 AST 19 ALT 19 Alkaline Phosphatase 64 Troponin I High Sens 9.7 Total Protein 6.8 Albumin 4.0 Globulin 2.8 Albumin/Globulin Ratio 1.4 Diagnostic Findings Chest X-Ray 04/05/24 10:17 XR chest 1V portable CLINICAL HISTORY: weakness COMPARISON STUDY: Chest radiograph June 21, 2023. FINDINGS: Lung volumes are normal. Minimal left basilar opacity favors atelectasis. There is no pneumothorax or pleural effusion. Cardiomegaly is unchanged. Mediastinal contours are normal. There is no evidence for pulmonary edema. IMPRESSION: No acute cardiopulmonary findings. ACT 112: Negative or not required by law. Electronically signed by: Andrews Park M.D. 04/05/2024 10:[address] 04/05/24 10:17 CT OF THE HEAD WITHOUT CONTRAST CLINICAL HISTORY: slurred speech; L facial droop COMPARISON STUDY: No previous studies for comparison. TECHNIQUE: Helical axial images of the head were obtained without IV contrast. Automated exposure control was utilized for the study. A dose lowering technique was utilized adhering to the principles of ALARA. FINDINGS: No acute intracranial hemorrhage, midline shift or mass effect is present. The ventricular system is unremarkable. The basal cisterns are patent. No extra-axial collections are present. There are no findings to suggest acute dural sinus thrombosis or acute territorial infarct. There is a 1.2 cm hypodense focus within the left thalamus. IMPRESSION: 1. No acute intracranial hemorrhage or mass effect. 2. 1.2 cm hypodense focus within the left thalamus. Although age indeterminate, this favors an old infarct. ACT 112: Negative or not required by law. Electronically signed by: Andrews Park M.D. 04/05/2024 11:31 AM Head CTA 04/05/24 10:17 CT angio neck with con, CT angio head w con CLINICAL HISTORY: 68 years-old Male with slurred speech; L facial droop. Acute strokelike symptoms COMPARISON STUDY: Head CT of same day TECHNIQUE: Following the IV administration of 120 mL of Optiray, CT angiogram of the head and neck was performed. Images are reviewed in the axial, sagittal, and coronal planes. 3-D MIPS images are created and assessed. IV contrast was administered without complication. All measurements were calculated based on NASCET criteria. A dose lowering technique was utilized adhering to the principles of ALARA. CT DOSE: 1268.91 mGy.cm FINDINGS: Three-vessel morphology of the thoracic aortic arch. Patent common carotid arteries. There is mild atherosclerotic plaque within the carotid bulbs without significant stenosis. Dominant and widely patent left vertebral artery. Development of a degenerative right vertebral artery appears to terminate into the PICA. Patent middle and anterior cerebral arteries. Cerebral venous sinuses are patent. No abnormal intracranial enhancement. Likely chronic left thalamic lacunar infarct. No pneumothorax. Unremarkable soft tissues. Degenerative changes of the cervical spine. IMPRESSION:Unremarkable CTA of the head and neck. ACT 112: Negative or not required by law. The above report was generated using voice recognition software. It may contain grammatical, syntax or spelling errors. Electronically signed by: Won Ospina M.D. 04/05/2024 11:40 AM Neck CTA 04/05/24 10:17 CT angio neck with con, CT angio head w con CLINICAL HISTORY: 68 years-old Male with slurred speech; L facial droop. Acute strokelike symptoms COMPARISON STUDY: Head CT of same day TECHNIQUE: Following the IV administration of 120 mL of Optiray, CT angiogram of the head and neck was performed. Images are reviewed in the axial, sagittal, and coronal planes. 3-D MIPS images are created and assessed. IV contrast was administered without complication. All measurements were calculated based on NASCET criteria. A dose lowering technique was utilized adhering to the principles of ALARA. CT DOSE: 1268.91 mGy.cm FINDINGS: Three-vessel morphology of the thoracic aortic arch. Patent common carotid arteries. There is mild atherosclerotic plaque within the carotid bulbs without significant stenosis. Dominant and widely patent left vertebral artery. Development of a degenerative right vertebral artery appears to terminate into the PICA. Patent middle and anterior cerebral arteries. Cerebral venous sinuses are patent. No abnormal intracranial enhancement. Likely chronic left thalamic lacunar infarct. No pneumothorax. Unremarkable soft tissues. Degenerative changes of the cervical spine. IMPRESSION:Unremarkable CTA of the head and neck. ACT 112: Negative or not required by law. The above report was generated using voice recognition software. It may contain grammatical, syntax or spelling errors. Electronically signed by: Won Ospina M.D. 04/05/2024 11:40 AM ECG Additional Comments: NSR Rate around 90 IA 154, QRS 86, QT/QTc 352/413 Code Status & VTE Plan Code Status Full Supervising Physician Co-Signing Physician Notes I personally saw and examined the patient. I independently reviewed the labs, EKG, imaging, problem list, medication list, past medical history and family history. I verified all tyler points and agree with Ellen Barbosa PA-C with the following exceptions and/or additions: 68 year old male presents to the ER with 40 minute episode of left upper extremity weakness. No change in vision, hearing, speech. Symptoms currently completely resolved. O/E A&Ox3, CN 2-> 12 intact, no extremity weakness or loss of sensation, HS RRR, no murmurs, Chest CTAB, Abdo SNT A/P TIA - ABCD2 score 4 - moderate risk, recommend DAPT for 21 days followed by aspirin alone. Statin pending lipid panel in am. TTE. HbA1C with AM labs PG Care Time/CCT Total # of Minutes Spent Total Time Spent with Patient: Total time spent is greater than 50% in coordination of care (as documented) at patient's floor/unit and/or counseling patient: Coding Level of Care Code 27275 INT INP/OBS CARE 2/55MIN Diagnoses TIA (transient ischemic attack) G45.9 Essential hypertension I10 Hypertension type: essential hypertension Pure hypercholesterolemia E78.00 Hyperlipidemia type: pure hypercholesterolemia (2) Hypertension Hypertension type: essential hypertension Qualified Code(s): I10 - Essential (primary) hypertension (3) Hyperlipidemia Hyperlipidemia type: pure hypercholesterolemia Qualified Code(s): E78.00 - Pure hypercholesterolemia, unspecified
[2024-04-05] MEDS: LORazepam 2 MG/1 ML VIAL IV ONE (14:46)
--- NOTE | 2024-04-05 16:14 | Magnetic Resonance Report ---
MR brain wo con HISTORY: 68 years-old Male left upper extemity weakness, slurred speech acute strokelike symptom COMPARISON: Head CT of same day TECHNIQUE: Multiplanar multisequence MRI of the brain was obtained without IV contrast FINDINGS: No restricted diffusion to suggest acute or subacute infarct. Midline structures are unremarkable. Ch ronic left thalamic lacunar infarct. No acute intracranial hemorrhage, midline shift, abnormal extra- axial collection, hydrocephalus or intra-axial mass. Mild involutional changes with scarring gadolini um T2/FLAIR hyperintense foci throughout the white matter. Cerebral venous sinuses and major arterial flow voids appear patent. Skull, orbits and soft tissues a re unremarkable. IMPRESSION: 1. No acute intracranial abnormality. No acute or subacute infarct. 2. Involutional changes with mild chronic microvascular ischemic disease. 3. Chronic left thalamic lacunar infarct. ACT 112: Negative or not required by law. The above report was generated using voice recognition software. It may contain grammatical, syntax o r spelling errors. Electronically signed by: Won Ospina M.D. 04/05/2024 4:12 PM
--- NOTE | 2024-04-05 16:20 | XCELERA ---
[id number]
[2024-04-05] MEDS ORDERED: INFLUENZA VACC TS2024-25(65y+)/PF (IIV3) 0.5mL Syr IM ONE (16:34)
[2024-04-05] MEDS: CLOPIDOGREL BISULFATE 300 MG TAB PO STA (20:13)
[2024-04-05] MEDS: ASPIRIN 81 MG CHEW PO STA (20:17)
[2024-04-06] MEDS: ROSUVASTATIN CALCIUM 5 MG TAB PO SCH (07:54)
[2024-04-06] MEDS: ASPIRIN 81 MG ECTAB PO SCH (07:54)
[2024-04-06] MEDS: lisinopril 20 MG TAB PO SCH (07:54)
[2024-04-06] MEDS: CLOPIDOGREL BISULFATE 75 MG TAB PO SCH (07:54)
[2024-04-06 07:58] VITALS: PULSE 67; RESP 18; TEMP 97.7; O2SAT 94
--- NOTE | 2024-04-06 10:01 | Discharge Summary ---
Date of Service April 06, 2024 Admission HPI Per Admitting Provider 68-year-old male presenting via EMS for LUE weakness noted around 0840 the day of arrival with associated dysarthria and reported facial droop. Symptoms resolved on transport to ED. ED course: CBC- RBC 4.66; CMP-glucose 115 otherwise WNL; PT/INR WNL.; CXR without acute cardiopulmonary findings; head CT, head CTA, neck CTA all without acute findings, head CT suggestive of old infarct due to 1.2 cm hypodense focus within the left thalamus. EKG appearing NSR with rate around 90. Patient is a 68-year-old male with PMHx hypertension and hyperlipidemia as well as additional orthopedic related conditions presenting for sudden onset of LUE weakness. Last known well per patient was 0840 the day of arrival. States he woke up, was sitting in a chair and drinking coffee. States that he dropped his phone and went to reach it with his left arm, but that his left arm was flaccid. Patient had to use his right arm to lift his left arm. Called his son at [phone] and called ambulance. Upon arrival of EMS, patient was noted to have possible left-sided facial droop, and patient felt as though he was slurring his words. Believes symptoms lasted approximately 40 minutes. Denying continuation of symptoms. No additional numbness/tingling to any extremities, clear articulation. Denying chest pain, shortness of breath, palpitations, abdominal pain, N/V/D/C, headache, vision changes, numbness/tingling, weakness, or LUTS. Has never had this happen before. Took a.m. medications. Please see Dr. Mancini's attestation for adjustments/additions to treatment plan. Admission Exam Per Admitting Provider General: No acute distress Skin: Warm and dry Head: Normocephalic, atraumatic Eyes: PERRL, conjunctivae clear, sclera non-icteric; EOM intact ENT: External ear and ear canal without swelling; nose atraumatic; fine dentition, tongue normal appearance without deviation, pharynx normal without tonsillar swelling or exudate Neck: Supple, no LAD Cardio: RRR, no M/G/R, S1 and S2 normal Resp: No respiratory distress, Lungs CTA in all lobes bilaterally, no wheezes, rales, or rhonchi Abdomen: Soft, symmetric, nontender; no distention; No masses or hepatosplenomegaly MSK: No deformities, full ROM throughout; sensation normal to UE/LE; pulses palpable and equal; no edema. Neuro: Awake, alert; Muscle strength 5/5 bilaterally in UE/LE; Sensation intact bilaterally; CN intact-raises eyebrow, smiles, puffs out cheeks, sticks out tongue, shrug shoulders against resistance, PERRLA, normal sensation in all locations of face, strength 5 out of 5 in all extremities. Psych: Appropriate mood and affect; good judgement and insight. 2 family numbers present in room at time of visit. Principal Diagnosis TIA (transient ischemic attack) Discharge Exam General: Awake, conversant Heart: S1, S2/regular rate and rhythm, no murmur rubs or gallops Lungs: Clear to auscultation bilaterally. Normal effort Abdomen: Soft/nontender/nondistended. No hepatosplenomegaly Extremities: No clubbing/cyanosis. No edema Behavior: Appropriate, cooperative Discharge Data Allergies Allergy/AdvReac Type Severity Reaction Status Date / Time No Known Allergies Allergy Unknown Verified 04/05/24 12:13 Consultations 04/05/24 12:37 ED Decision to Admit Stat Ordered Studies 04/05/24 10:17 CT head/brain wo con Stat CTA head w con [CT angio head w con] Stat CTA neck with con [CT angio neck with con] Stat 04/05/24 12:36 MRI Brain [MR brain wo con] Stat Hospital Course (1) TIA (transient ischemic attack): LUE weakness with dysarthria and reported facial droop starting around 0840 today arrival, resolving within 40 minutes. No return of symptoms - CT head revealing old infarct which is suggested by 1.2 cm hypodense focus within left thalamus - CTA head/neck without acute findings - No prior echo; echo EF 60 to 65%, LV systolic function normal, RV normal size and function, RVSP elevated 30 to 40 mmHg, mild aortic root dilatation (aortic root diameter 4.0 cm) - A1c on 12/29/2023- 5.4% - Lipids 12/28- Total 151, HDL 65, LDL 67, TG 93 - Troponin 9.7 - EKG NSR with rate 88 - ABCD2 score- 4 (moderate risk) will start DAPT x 21 days then switch to single agent - Continue (04/05) ASA 81mg + Clopidogrel 75mg daily - On rosuvastatin 5 mg every other day, with LDL at goal - MRI brain without acute intracranial abnormalities, no acute or subacute infarct, involutional changes with mild chronic microvascular ischemic disease, chronic left thalamic lacunar infarct (2) Hypertension: Hypertensive on arrival - Lisinopril 20 mg every morning (3) Hyperlipidemia: At goal - Rosuvastatin 5mg every other day Plan Discharge to home today Total Time Total Time Spent Total Time Spent (In Minutes): 35 Discharge Plan Discharge Items Patient Disposition: Home - Self-Care Reason For Visit: TIA SYMPTOMS Discharge Diagnosis: TIA (transient ischemic attack) Activity: Resume your previous activity Non-emergency contact: Primary Care Provider Call non-emergency contact if: you have any medication questions and your symptoms worsen Follow-up/Referrals: Singh Kelly MD [Primary Care Provider] - Diet: Heart Healthy Addtl Attending Provider Instructions: Advised to follow-up with PCP in 1 week Pending Studies at Discharge: No Stand-Alone Forms: [facility] Medications and DC Order Prescriptions: New clopidogrel 75 mg Tablet 75 mg PO QAM 21 Days Qty: 21 0RF aspirin 81 mg Tablet,Delayed Release (Dr/Ec) 81 mg PO DAILY Qty: 30 0RF Continued lisinopril 20 mg tablet 20 mg PO QAM Qty: 90 3RF rosuvastatin 5 mg tablet 5 mg PO Q OTHER DAY Qty: 45 3RF Patient Comments: takes in the am Rx Instructions: 5 mg PO every other day; Discharge Orders: Discharge Order (Routine); Ordered 04/06/24 Ordered By: Eleazar Phipps Admission Data Admit Date/Time: 04/05/24 13:18 Attending Provider: Eleazar Phipps Admit Provider: Luís Mancini Primary Care Provider: Singh Kelly Other Providers: Luís Mancini
[2024-04-06 10:25] VITALS: BP 157/90
== END 2024-04-06 11:42 | disposition home or self-care (01) | DRG 69 ==
LOC: ED 10:04 → 2N 13:18 → SUATTDRO 13:18 → 2N 14:49